=== PATIENT | male | born 1950 | race Caucasian/White ===

== ENCOUNTER → 2018-09-05 | Outpatient (CLI) | payer MEDICARE, OTHER ==
--- NOTE | 2018-09-05 14:06 | US ---
EXAMINATION TYPE: US mass soft tissue chest/back DATE OF EXAM: 09/05/2018 COMPARISON: NONE CLINICAL HISTORY: L02.31 abscess. Pt states hard, palpable lump left buttocks for unknown period of t corby Hypoechoic, solid area where pt feels palpable= 5.0 x 3.1 x 5.2 cm/ this area is non-vascular IMPRESSION: 1. Ill-defined hypoechoic area at the palpable region of the left buttocks, differential could includ e abscess. Hematoma should be considered. Cyst and seroma are considered unlikely given the hypoechoi c nature of the finding. Clinical correlation recommended.
== END | disposition home or self-care (01) ==
LOC: RADUSWWP 11:42
PROVIDERS: ATTEND Physician Assistant
DX: L02.31 Cutaneous abscess of buttock (principal)